=== PATIENT | female | born 1980 | race Caucasian/White ===

== ENCOUNTER 2018-03-28 06:44 | Day surgery (SDC) | payer MEDICAID ==
[~2018-03-28 06:44] MED LIST: ACETAMINOPHEN 1,000 MG/100 ML BTL IV ONE; CEFAZOLIN 2 Gram 2 GM/50 ML BAG IVPB ONE; FAMOTIDINE 20MG TABLET PO ONE; MECLIZINE 25 MG TABLET PO ONE; METOCLOPRAMIDE 10 MG TABLET PO ONE
[2018-03-28] MEDS ORDERED: FENTANYL PF 100MCG/2ML VIAL IV ONE (06:45)
[2018-03-28] MEDS ORDERED: BUPIVACAINE 0.25% W/EPI MPF 30ML VIAL IVP ONE (06:45)
[2018-03-28] MEDS ORDERED: PROPOFOL 10 MG/ML VIAL IV ONE (06:45)
[2018-03-28] MEDS ORDERED: SEVOFLURANE 250 ML INH ONE (06:45)
[2018-03-28] MEDS ORDERED: MIDAZOLAM HCL 2MG/2ML VIAL IV ONE (06:45)
[2018-03-28] MEDS ORDERED: LIDOCAINE 2% MDV (20MG/ML) 20ML VIAL IV ONE (06:45)
[2018-03-28] MEDS ORDERED: KETOROLAC 30 MG/ML VIAL IVP ONE (06:45)
[2018-03-28] MEDS ORDERED: ONDANSETRON HCL IV 4 MG/2 ML VIAL IVP ONE (06:45)
[2018-03-28] MEDS ORDERED: HYDROCODONE/APAP 5/325MG TABLET PO ONE (06:45)
--- NOTE | 2018-03-29 11:00 | Operative Note ---
DATE OF SURGERY: 03/28/2018 Surgeon: Balaji Razo DO PREOPERATIVE DIAGNOSIS: Incarcerated umbilical hernia. POSTOPERATIVE DIAGNOSIS: Incarcerated umbilical hernia. OPERATION: Open umbilical herniorrhaphy with mesh. Indication: The patient is a 37-year-old female who presented with pain and bulging in her abdomen. She had an element of diastasis as well as a small incarcerated umbilical hernia. We did discuss operative repair. Risks, benefits, and alternatives were discussed. Risks include bleeding, infection, acute or chronic pain, recurrence. She understood this fully. PROCEDURE: Therefore, consent was signed, questions answered. She was taken to the operating room and placed in a supine position. General anesthesia was administered per the department of anesthesia. The patient's abdomen was prepped and draped in the usual fashion. A timeout was performed. She did receive preoperative antibiotics as well as DVT prophylaxis. At this time, the periumbilical region was anesthetized with a total of 10 mL of 0.25% Sensorcaine with epinephrine. A 4 cm curvilinear supraumbilical incision was made. This was carried down to the anterior rectus fascia. The umbilical stalk was encircled and dissected free from the underlying hernia sac. Clean circumferential fascial edges were obtained. The hernia sac was then amputated and passed off the field. The defect measured about 1 cm. At this time, a 6.[address] mesh was placed in an intraperitoneal position. The upper skirt was sutured to the anterior rectus fascia with 2-0 Vicryl. This was done in 6 spots. The tails overlapped the fascia and they were sutured in place as well. At this time, the skin was tacked down to the fascia with 3-0 Vicryl. The wound was closed with 3-0 and 4-0 Vicryl and Dermabond was placed. The patient was taken to the recovery room in satisfactory condition. FINDINGS ON SURGERY: Incarcerated umbilical hernia repaired as above. CC: EMIGDIO Cormier
== END 2018-03-28 09:57 | disposition home or self-care (01) ==
LOC: SUR 06:44
PROVIDERS: ATTEND Surgery
DX: K42.0 Umbilical hernia with obstruction, without gangrene (principal); K21.9 Gastro-esophageal reflux disease without esophagitis; I49.9 Cardiac arrhythmia, unspecified
CPT/HCPCS: 49587; 00750; J1885; J2405; J3010; J0690

== ENCOUNTER 2018-04-21 13:02 | Emergency (ER) | payer MEDICAID ==
--- NOTE | 2018-04-21 13:30 | Emergency Department Record ---
History of Present Illness - General Chief complaint: Pain Stated complaint: LEFT HIP PAIN Time Seen by Provider: 04/21/18 13:19 Source: Patient Mode of Arrival: Wheelchair Limitations: No limitations - History of Present Illness Initial comments: Pt with pain to the left hip. Pain has been present "on and off" for many years. Pain today has been present a few days and "it pops". Pain localized to the left hip, no back pain. Pt has a hx of left leg "neuropathy" as dx by a neurolgist that has been present prior to this pain. No new numbness to the left leg. No weakness, just painful ot try and walk. No hx of trauma - recent or in past. was once told by an Orthopedic surgeon that her "hip shouldn't pop like that and you are going to need a hip replacement someday". Complaint: Extremity pain Onset/Timin -: Week(s) Location: Left, Other Severity scale (1-10): 10 Quality: Sharp Consistency: Constant Improves with: Immobilization Worsens with: Exertion, Walking, Weight bearing Associated Symptoms: Denies other symptoms - Related Data Allergies Allergy/AdvReac Type Severity Reaction Status Date / Time bee venom protein (honey bee) Allergy Severe DIFFICULTY Verified 04/21/18 13:12 BREATHING Fish Containing Products Allergy Severe DIFFICULTY Verified 04/21/18 13:12 BREATHING acetaminophen Allergy DIFFICULTY Verified 03/24/18 10:22 [From Darvocet-N 100] BREATHING duloxetine HCl Allergy DIZZINESS Verified 04/21/18 13:12 [From Cymbalta] propoxyphene Allergy DIFFICULTY Verified 03/24/18 10:22 [From Darvocet-N 100] BREATHING Travel Screening - Travel/Exposure Within Last 30 Days Have you traveled within the last 30 days?: No Review of Systems Constitutional: Denies: Chills, Fever, Weakness Eyes: Denies: Eye discharge, Photophobia ENT: Denies: Ear pain, Throat pain Respiratory: Denies: Cough, Dyspnea Cardiovascular: Denies: Arrhythmia, Chest pain, Syncope Endocrine: Denies: Fatigue Gastrointestinal: Denies: Abdominal pain, Diarrhea, Vomiting Genitourinary: Denies: Abnormal menses Musculoskeletal: Reports: As per HPI. Denies: Arthralgia, Back pain Skin: Denies: Bruising, Rash Neurological: Reports: As per HPI, Abnormal gait. Denies: Headache, Tremors Psychiatric: Denies: Anxiety Hematological/Lymphatic: Denies: Anemia Past Medical History - SOCIAL HISTORY Smoking Status: Former smoker - RESPIRATORY Hx Respiratory Disorders: No - CARDIOVASCULAR Hx Cardio Disorders: Yes Hx Irregular Heartbeat: Yes (on meds for several yrs good control.) - NEURO Hx Neuro Disorders: No - GI Hx GI Disorders: Yes Hx Abdominal Pain: Yes Hx Reflux: Yes (on meds good control) Hx Nausea/Vomiting: Yes Comment:: gastric paresis - Hx Genitourinary Disorders: No Comment:: S/P tubal 2005 - ENDOCRINE Hx Endocrine Disorders: No - MUSCULOSKELETAL Hx Musculoskeletal Disorders: Yes Hx Arthritis: Yes (RA) - PSYCH Hx Psych Problems: No - HEMATOLOGY/ONCOLOGY Hx Hematology/Oncology Disorders: No Family Medical History Any Significant Family History?: Yes Family Hx Comment (NOT TO BE USED IN PLACE OF ITEMS BELOW): dad with UC. mom pt states from strangulated hernia Hx Heart Disease: Father Physical Exam - General General Appearance: Alert, Oriented x3, Cooperative, No acute distress - Head Head exam: Atraumatic, Normal inspection - Eye Eye exam: Normal appearance, PERRL - ENT ENT exam: Normal exam, Mucous membranes moist, Normal external ear exam, Normal orophraynx, TM's normal bilaterally - Neck Neck exam: Normal inspection, Full ROM. negative: Tenderness - Respiratory Respiratory exam: Normal lung sounds bilaterally. negative: Respiratory distress - Cardiovascular Cardiovascular Exam: Regular rate, Normal rhythm, Normal heart sounds. negative : Tachycardia - GI/Abdominal GI/Abdominal exam: Soft, Normal bowel sounds. negative: Tenderness - Extremities Extremities exam: Tenderness (over left lateral hip - guards motion into flex/ ext and rotation. No skin lesions. Pelvis stable. No knee swelling. ) - Neurological Neurological exam: Alert, Oriented X3 - Psychiatric Psychiatric exam: Normal affect, Normal mood - Skin Skin exam: Normal color. negative: Rash Course Vital Signs 04/21/18 13:06 Temperature 97.7 F Pulse Rate 89 Respiratory 20 Rate Blood Pressure 126/76 Pulse Ox 97 - Reevaluation(s) Reevaluation #1: 04/21/18 13:58 Xray hip and pelvis neg. Medical Decision Making - Data Complexity MDM Data: X-Ray Ordered and/or Reviewed, Independent Visualization of Image, Tracing, or Specimen - Radiology Data Radiology results: Image reviewed -: Radiology Exam Interpreted by Myself Disposition Disposition: Discharge Clinical Impression: Hip pain, left Disposition: Home, Self-Care Condition: (1) Good Instructions: Hip Pain (ED) Additional Instructions: Ice to area. Malick WADE BID #20 handwritten script. Ortho referral by family doctor. Referrals: JOLIE CENTENO [DOCTOR OF OSTEOPATH] - Forms: Patient Portal Access Time of Disposition: 14:03 Quality - Quality Measures Quality Measures: N/A - Blood Pressure Screening Does Patient Have Any of the Following: No Blood Pressure Classification: Pre-Hypertensive BP Reading Systolic Measurement: 126 Diastolic Measurement: 76 Screening for High Blood Pressure: < Pre-Hypertensive BP, F/U Documented > [ [id number]] Pre-Hypertensive Follow-up Interventions: Follow-up with rescreen every year.
--- NOTE | 2018-04-23 19:22 | RADIOLOGY REPORT ---
EXAM: HIP,UNILAT, 2-3 VIEW LEFT HISTORY: SEVERE LEFT HIP PAIN FOR ONE WEEK. NO KNOWN INJURY. TECHNIQUE: AP pelvis and AP/lateral views of the left hip. COMPARISON: CT abdomen and pelvis 03/25/2018. FINDINGS: No acute fracture seen. No hip joint dislocation. Minimal bilateral acetabular osteophytes. IMPRESSION: NO ACUTE RADIOGRAPHIC FINDINGS. JOB NUMBER: [id number] MTDD
== END 2018-04-21 14:17 | disposition home or self-care (01) ==
LOC: ER 13:02
DX: M25.552 Pain in left hip (principal); Z87.891 Personal history of nicotine dependence
CPT/HCPCS: 99283

== ENCOUNTER 2018-11-20 11:06 | Emergency (ER) | payer MEDICAID ==
[2018-11-20] MEDS ORDERED: KETOROLAC 30 MG/ML VIAL IVP ONE (11:54)
[2018-11-20 12:19] LABS: ABSOLUTE NEUTROPHIL COUNT 5.67; BASO % 0.1 % (0-6); GRAN % 77.7 % (47-80); HEMATOCRIT 39.4 % (35.0-47.0); HEMOGLOBIN 12.6 gm/dl (11.6-16.0); LYMPH % 14.2 % (16-45); MEAN CELL VOLUME 88.7 fl (81-97); MEAN CORPUSCULAR HEMOGLOBIN 28.4 pg (27-33); MEAN PLATELET VOLUME 9.3 fl (7.4-10.4); PLATELET COUNT 391 K/uL (130-400); RED BLOOD COUNT 4.44 M/uL (3.80-5.40); RED CELL DISTRIBUTION WIDTH 13.9 % (11.5-14.5); WHITE BLOOD COUNT W/O DIFF 7.3 K/uL (4.2-12.2)
[2018-11-20 12:22] LABS: URINE APPEARANCE CLEAR; URINE BILIRUBIN NEGATIVE (NEGATIVE); URINE BLOOD TRACE-L (NEGATIVE); URINE COLOR YELLOW; URINE GLUCOSE (UA) NEGATIVE (NEGATIVE); URINE KETONE NEGATIVE (NEGATIVE); URINE LEUKOCYTE ESTERASE MODERATE (NEGATIVE); URINE NITRITE NEGATIVE (NEGATIVE); URINE PROTEIN NEGATIVE (NEGATIVE); URINE UROBILINOGEN 0.2 E.U./dL (0.20 - 1.00)
[2018-11-20 12:32] LABS: BLOOD UREA NITROGEN 14 mg/dL (6-20); CREATININE 0.6 mg/dL (0.5-0.9); EST GLOMERULAR FILTRATION RATE > 60 mL/min; URINE BACTERIA FEW; URINE EPITHELIAL CELLS 0 - 2 (FEW); URINE RBC 0 - 2 (NONE SEEN)
[2018-11-20 12:33] LABS: TOTAL PROTEIN 7.9 g/dL (6.6-8.7)
[2018-11-20 12:35] LABS: GLUCOSE,RANDOM 87 mg/dL (74-109)
[2018-11-20 12:37] LABS: ALBUMIN 4.4 g/dL (4.0-5.0); ALT/SGPT 29 U/L (<33); AST/SGOT 27 U/L (10.0-35.0)
[2018-11-20 12:38] LABS: ALB/GLOB RATIO 1.3 (1.1-1.8); ALKALINE PHOSPHATASE 176 U/L (35-104)
[2018-11-20] MEDS ORDERED: HYDROMORPHONE HCL 2 MG/ML VIAL IVP ONE (14:31)
[2018-11-20] MEDS ORDERED: ORPHENADRINE CITRATE 60MG/2ML VIAL IM ONE (14:32)
--- NOTE | 2018-11-20 15:04 | Emergency Department Record ---
History of Present Illness - General Chief complaint: Flank Pain Stated complaint: FLANK PAIN Time Seen by Provider: 11/20/18 11:49 Source: Patient Mode of Arrival: Ambulatory Limitations: No limitations - History of Present Illness Initial comments: pt has been having back/flank pain that is getting worse. movement and breathing make it worse. she denies injuring it Complaint: Other Onset/Timin -: Days(s) Severity: Moderate Severity scale (1-10): 10 Quality: Sharp Consistency: Constant Improves with: None Worsens with: None Patient : No Associated Symptoms: Denies other symptoms - Related Data Home Medications Medication Instructions Recorded Confirmed Last Taken Gabapentin 300 mg PO DAILY 11/20/18 11/20/18 11/20/18 Naproxen 500 mg PO BID PRN 11/20/18 11/20/18 11/20/18 Previous Rx's Medication Instructions Recorded Cyclobenzaprine HCl [Flexeril] 10 mg PO TID #10 tablet 11/20/18 Ibuprofen [Motrin 600Mg] 600 mg PO Q6H #20 tablet 11/20/18 Allergies Allergy/AdvReac Type Severity Reaction Status Date / Time bee venom protein (honey bee) Allergy Severe DIFFICULTY Verified 11/20/18 11:27 BREATHING Fish Containing Products Allergy Severe DIFFICULTY Verified 11/20/18 11:27 BREATHING duloxetine HCl Allergy DIZZINESS Verified 11/20/18 11:27 [From Cymbalta] propoxyphene Allergy DIFFICULTY Verified 11/20/18 11:27 [From Darvocet-N 100] BREATHING Travel Screening - Travel/Exposure Within Last 30 Days Have you traveled within the last 30 days?: No - Travel/Exposure Within Last Year Have you traveled outside the [place] in the last year?: No - Additonal Travel Details Have you been exposed to anyone with a communicable illness?: No - Travel Symptoms Symptom Screening: None Review of Systems Reviewed: No additional complaints except as noted below Constitutional: Reports: As per HPI. Denies: Chills, Fever, Malaise, Night sweats, Weakness, Weight change Eyes: Reports: As per HPI. Denies: Eye discharge, Eye pain, Photophobia, Vision change ENT: Reports: As per HPI. Denies: Congestion, Dental pain, Ear pain, Epistaxis, Hearing loss, Throat pain Respiratory: Reports: As per HPI. Denies: Cough, Dyspnea, Hemoptysis, Stridor, Wheezes Cardiovascular: Reports: As per HPI. Denies: Arrhythmia, Chest pain, Dyspnea on exertion, Edema, Murmurs, Orthopnea, Palpitations, Paroxysmal nocturnal dyspnea, Rheumatic Fever, Syncope Endocrine: Reports: As per HPI. Denies: Fatigue, Heat or cold intolerance, Polydipsia, Polyuria Gastrointestinal: Reports: As per HPI. Denies: Abdominal pain, Constipation, Diarrhea, Hematemesis, Hematochezia, Melena, Nausea, Vomiting Genitourinary: Reports: As per HPI. Denies: Abnormal menses, Discharge, Dyspareunia, Dysuria, Frequency, Hematuria, Incontinence, Retention, Urgency Musculoskeletal: Reports: As per HPI. Denies: Arthralgia, Back pain, Gout, Joint swelling, Myalgia, Neck pain Skin: Reports: As per HPI. Denies: Bruising, Change in color, Change in hair/nails, Lesions, Pruritus, Rash Neurological: Reports: As per HPI. Denies: Abnormal gait, Confusion, Headache, Numbness, Paresthesias, Seizure, Tingling, Tremors, Vertigo, Weakness Psychiatric: Reports: As per HPI. Denies: Anxiety, Auditory hallucinations, Depression, Homicidal thoughts, Suicidal thoughts, Visual hallucinations Hematological/Lymphatic: Reports: As per HPI. Denies: Anemia, Blood Clots, Easy bleeding, Easy bruising, Swollen glands Past Medical History - SOCIAL HISTORY Smoking Status: Former smoker Alcohol Use: None Drug Use: None - RESPIRATORY Hx Respiratory Disorders: No - CARDIOVASCULAR Hx Cardio Disorders: Yes Hx Irregular Heartbeat: Yes (on meds for several yrs good control.) - NEURO Hx Neuro Disorders: No - GI Hx GI Disorders: Yes Hx Abdominal Pain: Yes Hx Reflux: Yes (on meds good control) Hx Nausea/Vomiting: Yes Comment:: gastric paresis - Hx Genitourinary Disorders: No Comment:: S/P tubal 2006 - ENDOCRINE Hx Endocrine Disorders: No - MUSCULOSKELETAL Hx Musculoskeletal Disorders: Yes Hx Arthritis: Yes (RA) - PSYCH Hx Psych Problems: No - HEMATOLOGY/ONCOLOGY Hx Hematology/Oncology Disorders: No Family Medical History Any Significant Family History?: Yes Family Hx Comment (NOT TO BE USED IN PLACE OF ITEMS BELOW): dad with UC. mom pt states from strangulated hernia Hx Heart Disease: Father Physical Exam - General General Appearance: Alert, Oriented x3, Cooperative, Mild distress - Head Head exam: Normal inspection - Eye Eye exam: Normal appearance, PERRL, EOMI Pupils: Normal accommodation - ENT ENT exam: Normal exam, Mucous membranes moist, Normal external ear exam, Normal orophraynx Ear exam: Normal external inspection. negative: External canal tenderness Nasal Exam: Normal inspection. negative: Discharge, Sinus tenderness Mouth exam: Normal external inspection, Tongue normal Teeth exam: Normal inspection. negative: Dental caries Throat exam: Normal inspection. negative: Tonsillar erythema, Tonsillar exudate - Neck Neck exam: Normal inspection, Full ROM. negative: Tenderness - Respiratory Respiratory exam: Normal lung sounds bilaterally. negative: Respiratory distress - Cardiovascular Cardiovascular Exam: Regular rate, Normal rhythm, Normal heart sounds - GI/Abdominal GI/Abdominal exam: Soft, Normal bowel sounds. negative: Tenderness - Rectal Rectal exam: Deferred - exam: Deferred - Extremities Extremities exam: Normal inspection, Full ROM, Normal capillary refill. negative: Tenderness - Back Back exam: Reports: CVA tenderness (R), Muscle spasm, Tenderness. Denies: Full ROM, Rash noted - Neurological Neurological exam: Alert, CN II-XII intact, Normal gait, Oriented X3 - Psychiatric Psychiatric exam: Normal affect, Normal mood - Skin Skin exam: Dry, Intact, Normal color, Warm Course Vital Signs 11/20/18 11/20/18 11:33 14:59 Temperature 98.1 F Pulse Rate 85 Pulse Rate [ 78 Pulse Ox Probe] Respiratory 20 20 Rate Blood Pressure 111/84 Blood Pressure 106/60 [Left Arm] Pulse Ox 99 97 - Reevaluation(s) Reevaluation #1: 11/20/18 15:06 ct is neg, pt feels better Medical Decision Making - Lab Data Result diagrams: 11/20/18 12:05 11/20/18 12:05 Lab Results 11/20/18 11/20/18 11/20/18 Range/Units 12:05 12:05 12:05 WBC 7.3 (4.2-12.2) K/uL RBC 4.44 (3.80-5.40) M/uL Hgb 12.6 (11.6-16.0) gm/dl Hct 39.4 (35.0-47.0) % MCV 88.7 (81-97) fl MCH 28.4 (27-33) pg MCHC 32.0 (32-36) g/dl RDW 13.9 (11.5-14.5) % Plt Count 391 (130-400) K/uL MPV 9.3 (7.4-10.4) fl Gran % 77.7 (47-80) % Lymphocytes % 14.2 L (16-45) % Monocytes % 7.0 (0-9) % Eosinophils % 1.0 (0-6) % Basophils % 0.1 (0-6) % Absolute Neutrophils 5.67 D-Dimer 0.49 (0-0.59) mg/L FEU Sodium (136-145) mmol/L Potassium (3.4-4.5) mmol/L Chloride (98-107) mmol/L Carbon Dioxide (22-29) mmol/L Anion Gap (7-16) BUN (6-20) mg/dL Creatinine (0.5-0.9) mg/dL Estimated GFR mL/min Random Glucose (74-109) mg/dL Calcium (8.6-10.0) mg/dL Total Bilirubin (0.2-1.0) mg/dL AST (10.0-35.0) U/L ALT (<33) U/L Alkaline Phosphatase (35-104) U/L Total Protein (6.6-8.7) g/dL Albumin (4.0-5.0) g/dL Globulin (1.4-4.8) gm/dL Albumin/Globulin Ratio (1.1-1.8) Urine Color Yellow Urine Appearance Clear Urine pH 5.5 (5.0-8.0) Ur Specific [place] 1.025 (1.002-1.030) Urine Protein Negative (NEGATIVE) Urine Glucose (UA) Negative (NEGATIVE) Urine Ketones Negative (NEGATIVE) Urine Blood Trace-l (NEGATIVE) Urine Nitrite Negative (NEGATIVE) Urine Bilirubin Negative (NEGATIVE) Urine Urobilinogen 0.2 (0.20 - 1.00) E.U./dL Ur Leukocyte Esterase Moderate H (NEGATIVE) Urine RBC 0 - 2 (NONE SEEN) Urine WBC 3 - 5 (0-2/hpf) Ur Epithelial Cells 0 - 2 (FEW) Urine Bacteria Few 11/20/18 Range/Units 12:05 WBC (4.2-12.2) K/uL RBC (3.80-5.40) M/uL Hgb (11.6-16.0) gm/dl Hct (35.0-47.0) % MCV (81-97) fl MCH (27-33) pg MCHC (32-36) g/dl RDW (11.5-14.5) % Plt Count (130-400) K/uL MPV (7.4-10.4) fl Gran % (47-80) % Lymphocytes % (16-45) % Monocytes % (0-9) % Eosinophils % (0-6) % Basophils % (0-6) % Absolute Neutrophils D-Dimer (0-0.59) mg/L FEU Sodium 139 (136-145) mmol/L Potassium 4.5 (3.4-4.5) mmol/L Chloride 102 (98-107) mmol/L Carbon Dioxide 24.0 (22-29) mmol/L Anion Gap 13.0 (7-16) BUN 14 (6-20) mg/dL Creatinine 0.6 (0.5-0.9) mg/dL Estimated GFR > 60 mL/min Random Glucose 87 (74-109) mg/dL Calcium 9.4 (8.6-10.0) mg/dL Total Bilirubin 0.40 (0.2-1.0) mg/dL AST 27 (10.0-35.0) U/L ALT 29 (<33) U/L Alkaline Phosphatase 176 H (35-104) U/L Total Protein 7.9 (6.6-8.7) g/dL Albumin 4.4 (4.0-5.0) g/dL Globulin 3.5 (1.4-4.8) gm/dL Albumin/Globulin Ratio 1.3 (1.1-1.8) Urine Color Urine Appearance Urine pH (5.0-8.0) Ur Specific [place] (1.002-1.030) Urine Protein (NEGATIVE) Urine Glucose (UA) (NEGATIVE) Urine Ketones (NEGATIVE) Urine Blood (NEGATIVE) Urine Nitrite (NEGATIVE) Urine Bilirubin (NEGATIVE) Urine Urobilinogen (0.20 - 1.00) E.U./dL Ur Leukocyte Esterase (NEGATIVE) Urine RBC (NONE SEEN) Urine WBC (0-2/hpf) Ur Epithelial Cells (FEW) Urine Bacteria Disposition Disposition: Discharge Clinical Impression: Acute lumbar myofascial strain Qualifiers: Encounter type: initial encounter Qualified Code(s): S39.012A - Strain of muscle, fascia and tendon of lower back, initial encounter Disposition: Home, Self-Care Condition: (1) Good Instructions: Low Back Strain (ED), Lower Back Exercises (ED) Additional Instructions: follow up with family doctor. return sooner if worse. no lifting more then 5 lbs. Prescriptions: Cyclobenzaprine HCl [Flexeril] 10 mg PO TID #10 tablet Ibuprofen [Motrin 600Mg] 600 mg PO Q6H #20 tablet Forms: Patient Portal Access Quality - Quality Measures Quality Measures: N/A - Blood Pressure Screening Does Patient Have Any of the Following: No Blood Pressure Classification: Pre-Hypertensive BP Reading Systolic Measurement: 111 Diastolic Measurement: 84 Screening for High Blood Pressure: < Pre-Hypertensive BP, F/U Documented > [G8950] Pre-Hypertensive Follow-up Interventions: Follow-up with rescreen every year.
--- NOTE | 2018-11-23 10:29 | CT SCAN REPORT ---
EXAM: CT OF THE ABDOMEN AND PELVIS WITHOUT CONTRAST HISTORY: ACUTE LEFT FLANK PAIN FOR FIVE DAYS. TECHNIQUE: Noncontrast CT of the abdomen and pelvis was obtained. Comparison: 03/25/18. FINDINGS: LUNG BASES: Clear of acute process. LIVER, GALLBLADDER, PANCREAS AND SPLEEN: The liver is unremarkable. The gallbladder is absent. The pancreas shows no ductal dilatation or inflammation. The spleen is unremarkable. There is an incidental small splenule inferior to the splenic hilum. RETROPERITONEUM: The adrenal glands appear normal. The kidneys show no hydronephrosis, calcification, or perinephric edema. There is no adenopathy or mass within the retroperitoneum. VASCULAR STRUCTURES: No aneurysm of the aorta. The inferior vena cava has normal distention. The portal venous system is unremarkable. ABDOMINAL WALL: The abdominal musculature is intact. No hernia. MESENTERY: There is no free air or fluid. There is no sign of inflammation or any mesenteric lymphadenopathy. GI TRACT: The stomach is unremarkable. The small bowel is unremarkable including to terminal ileum. The colon shows no distention, wall thickening, inflammation or diverticular disease. The rectum appears normal. The appendix is not inflamed. There is calcification of the distal end of the appendix. This finding is unchanged from the March exam. BLADDER AND REPRODUCTIVE ORGANS: The bladder is unremarkable. The adnexa shows no mass or cyst. MUSCULOSKELETAL STRUCTURES: The pelvic musculature is normal. There are no suspicious bony lesions of the pelvis. The lumbar spine shows no suspicious vertebral body findings. IMPRESSION: 1. NO EVIDENCE OF NEPHROLITHIASIS OR A CURRENT OBSTRUCTIVE UROPATHY. 2. NO SIGN OF ANY ACUTE OR INFLAMMATORY PROCESS WITHIN THE ABDOMEN OR PELVIS. 3. NO EVIDENCE OF ANY GI TRACT OBSTRUCTION. JOB NUMBER: [id number] [facility]
== END 2018-11-20 15:21 | disposition home or self-care (01) ==
LOC: ER 11:06
DX: S39.012A Strain of muscle, fascia and tendon of lower back, initial encounter (principal); R10.32 Left lower quadrant pain; X58.XXXA Exposure to other specified factors, initial encounter; Z87.891 Personal history of nicotine dependence
CPT/HCPCS: 74176; 80053; 81001; 85025; 85379; 96372; 96374; 96375; 99284; J1885; J2360